=== PATIENT | female | born 1930 | race Caucasian/White ===

== ENCOUNTER 2017-02-09 13:03 | Emergency (ER) | payer MEDICARE, MEDICAID ==
--- NOTE | 2017-02-09 13:42 | ED Physician Chart ---
Chief Complaint/HPI - Patient Information Date Seen:: 02/09/17 Time Seen:: 13:37 Chief Complaint:: lac rt forearm History of Present Illness:: pt is here w her caregiver after she slipped using walker and cut lac rt forearm on handicap sign of her car. no fall. no head impact. no other injury. not a syncope. pt was just returning from her dr/cardiology dr of[facility] and was given a ok checkup. has hx of a fib. no recent infection. no focal neuro change. no recent fever no JORDAN, no neck pain. no cp. no palpitations. event was witnessed by Daya(caregiver ) who says she was def not dizzy/woozy before slip and it was definitely not a syncope. ..she has not been weak dizzy or anxious or w palpitations lately. has been on dig long time w stable levels and no problems. last d tet ?? Allergies:: Allergies Allergy/AdvReac Type Severity Reaction Status Date / Time No Known Allergies Allergy Verified 02/09/17 13:14 Vitals:: Vital Signs - 8 hr 02/09/17 13:15 Temp 97 F HR 83 RR 16 BP 159/100 O2 Sat % 97 Historian:: Patient, Friend Review of Systems - Review of Systems General/Constitutional: No fever, No chills, No weight loss, No weakness, No diaphoresis, No edema, No loss of appetite Skin: Skin lesions, No rash, No bruising Head: No headache, No light-headedness Eyes: No loss of vision, No pain, No diplopia ENT: No earache, No nasal drainage, No sore throat, No tinnitus Neck: No neck pain, No swelling, No thyromegaly, No stiffness, No mass noted Cardio Vascular: No chest pain, No palpitations, No PND, No orthopnea, No edema Pulmonary: No SOB, No cough, No sputum, No wheezing GI: No nausea, No vomiting, No diarrhea, No pain, No melena, No hematochezia, No constipation, No hematemesis G/U: No dysuria, No frequency, No hematuria Musculoskeletal: No bone or joint pain, No back pain, No muscle pain Endocrine: No polyuria, No polydipsia Psychiatric: No prior psych history, No depression, No anxiety, No suicidal ideation Hematopoietic: No bruising, No lymphadenopathy Allergic/Immuno: No urticaria, No angioedema Neurological: No syncope, No focal symptoms, No weakness, No paresthesia, No headache, No seizure, No dizziness, No confusion, No vertigo Past Medical History - Past Medical History Past Medical History: HTN, DM, CAD (a fib), Dyslipidemia, Dementia (caregiver thinks pt has some early dementia) Social History: Non Smoker, Other (lives in private home. has caregiver) Medication: Reviewed Family Medical History - Family Member Mother History Unknown: Yes Living Status: Physical Exam - Physical Examination General/Constitutional: Awake, Well-developed, well-nourished, Alert, No distress, GCS 15, Non-toxic appearing, Ambulatory Other Gen/Cons comments:: alert and mobile. good historian. no sign of trauma except at rt forearm which has a shallow horrizontal lac 3- 4cm long w sq fat visable through lac but no extension to deeper structures. no tendon/nerve/vascular injury. Head: Atraumatic Eyes: Lids, conjuctiva normal, PERRL, EOMI Skin: Nl inspection, No rash, No skin lesions, No ecchymosis, Well hydrated, No lymphadenopathy ENMT: External ears, nose nl, Nasal exam nl, Lips, teeth, gums nl Neck: Nontender, Full ROM w/o pain, No JVD, No nuchal rigidity, No bruit, No mass, No stridor Respiratory: Nl effort/Exclusion, Clear to Auscultation, No Wheeze/Rhonchi/Rales Cardio Vascular: RRR, No murmur, gallop, rubs, NL S1 S2 GI: No tenderness/rebounding/guarding, No organomegaly, No hernia, Normal BS's, Nondistended, No mass/bruits, No McBurney tenderness : No CVA tenderness Extremities: No tenderness or effusion, Full ROM, normal strength in all extremities, No edema, Normal digits & nails Other Extremities comments:: rt mid-forearm which has a shallow horrizontal lac 3-4cm long w sq fat visible through lac but no extension to deeper structures. no tendon/nerve/vascular injury. sens/str ok in l hand. Neuro/Psych: Alert/oriented, DTR's symmetric, Normal sensory exam, Normal motor strength, Judgement/insight normal, Mood normal, Normal gait, No focal deficits Misc: normal gait, Normal back, No paraspinal tenderness Assessment Location:: WOUND REPAIR: rt forearm which has a shallow horrizontal lac 3-4cm long w sq fat visable through lac but no extension to deeper structures. no tendon/nerve/vascular injury. wound explored no f.b. betadyne prep. ns irrigation/wash. closed w dermabond. w good cosmetic closure. dry dressing applied over by rn after. Laceration Type:: Simple Wound Length: 3.5 cm ED Septic Shock - . Is Septic Shock (SBP<90, OR Lactate>4 mmol\L) present?: No - <6hrs of presentation: Vital Signs: Vital Signs - 8 hr // 13:15 Temp 97 F HR 83 RR 16 BP 159/100 O2 Sat % 97 Reassessment (Disposition) - Reassessment Reassessment Condition:: Improved - Diagnosis Diagnosis:: 3.5 cm lac at rt forearm s/p dermabond closure - Aftercare/Follow up Instructions Aftercare/Follow-Up Instructions:: Counseled pt & family regarding lab results/ diagnosis & need follow up Notes:: see pmd in 2 d for wound rechk. wound care dw pt and caregiver (Daya). Medication Prescribed:: rx keflex as precaution given DM hx ...500 bid x 5d. - Patient Disposition Discharge/Transfer:: Home Condition at Disposition:: Improved
== END 2017-02-09 15:00 | disposition home or self-care (01) ==
LOC: ER 13:03
DX: S51.812A Laceration without foreign body of left forearm, initial encounter (principal); I10 Essential (primary) hypertension; E11.9 Type 2 diabetes mellitus without complications; I25.10 Atherosclerotic heart disease of native coronary artery without angina pectoris; W45.8XXA Other foreign body or object entering through skin, initial encounter; Y93.89 Activity, other specified; Y92.89 Other specified places as the place of occurrence of the external cause; Y99.8 Other external cause status
CPT/HCPCS: 12002; Z7502